=== PATIENT | female | born 1950 | race Caucasian/White ===

== ENCOUNTER → 2018-08-16 | Outpatient (CLI) | payer MEDICARE ==
--- NOTE | 2018-08-16 16:02 | RAD ---
Chest 2 views HISTORY: Cough COMPARISON: None FINDINGS: Heart is normal in size. The lungs are hyperexpanded. Mild bilateral interstitial prominence is evident. No effusion or pneumothorax is seen. IMPRESSION: Hyperexpanded lungs. Prominence of the interstitial markings could reflect nonspecific pneumonitis or interstitial fibrosis. No consolidations. Electronically signed by: Kade Gallagher MD (08/16/2018 4:00 PM) [facility] [place]
== END | disposition home or self-care (01) ==
LOC: RAD 09:54
PROVIDERS: ATTEND Family Medicine
DX: J98.4 Other disorders of lung (principal); J45.909 Unspecified asthma, uncomplicated
CPT/HCPCS: 71046

== ENCOUNTER → 2018-10-04 | Outpatient (CLI) | payer MEDICARE ==
[~2018-10-04] MED LIST: CONTRAST GIVEN. MC PRN; IOHEXOL 300 MG/ML 100ML VIAL. IV ONE
[2018-10-04 10:23] LABS: CREATININE 0.8 mg/dL (0.6-1.0); GFR 71.8
--- NOTE | 2018-10-04 13:37 | RAD ---
PQRS Compliance Statement: One or more of the following individualized dose reduction techniques were utilized for this examination: 1. Automated exposure control 2. Adjustment of the mA and/or kV according to patient size 3. Use of iterative reconstruction technique CT neck and chest with contrast 10/04/2018 INDICATION: Vocal cord polyp. COPD. COMPARISON: None available. TECHNIQUE: Multiple axial CT images of the neck and chest were obtained after the intravenous demonstration of 75 cc Omnipaque 300. Coronal and sagittal reformats are provided. FINDINGS: Orbits are normal in appearance with exception of bilateral lens replacement. No suspicious enhancement is identified in the visualized portions of the brain parenchyma and posterior fossa. Visualized portions of the elim ira of Damian appear intact. Paranasal sinuses are well aerated. Mastoid air cells are well aerated. Skull base is intact. Nasopharynx, oropharynx and hypopharynx are normal in appearance. Epiglottis is intact. Aryepiglottic folds are normal in appearance. No suspicious mucosal nodularity involving the true cords. No submucosal mass is identified. Paraglottic fat is preserved. Laryngeal cartilages are intact. Parapharyngeal fat is preserved. No pathologically enlarged or abnormally enhancing cervical lymph nodes are identified. Left level 2 cervical lymph node measures 4 mm by short axis. Trachea is normal in appearance. Subcentimeter thyroid nodules are identified measuring up to 6 mm in the right thyroid lobe. Carotid spaces are intact. No significant mediastinal and right hilar lymph nodes are identified. Heart size within normal limits. There is no pericardial effusion. Thoracic aorta is normal in course and caliber with mild calcified atheromatous plaque. There are no pathologically enlarged axillary, mediastinal or hilar lymph nodes. 3 mm solid noncalcified pulmonary nodule along the left major fissure (series 4, image 33). There is a subpleural nodule in the left lower lobe measuring 6 mm (series 4, image 55). 6 mm calcified granulomas identified in the medial right upper lobe. There is moderate centrilobular pulmonary emphysema. No pleural effusions. No pulmonary vascular congestion or pneumothorax. No suspicious osseous abnormality is identified. There is mild cervical spondylosis centered at C6-C7. IMPRESSION: 1. True cords appear normal in appearance by CT. No submucosal mass or paraglottic abnormality. 2. No pathologically enlarged cervical lymph nodes are identified. 3. There is a 6 mm solid noncalcified pulmonary nodule in the subpleural left lower lobe. 6 month follow-up chest CT is recommended to assess stability. 4. Moderate centrilobular pulmonary emphysema. Electronically signed by: Adamaris Andrews MD (10/04/2018 1:34 PM) [email or web address]
== END | disposition home or self-care (01) ==
LOC: CT 10:01
PROVIDERS: ATTEND Internal Medicine Pulmonary Disease
DX: J43.2 Centrilobular emphysema (principal); R91.1 Solitary pulmonary nodule; J84.10 Pulmonary fibrosis, unspecified; I70.0 Atherosclerosis of aorta; M47.812 Spondylosis without myelopathy or radiculopathy, cervical region; J38.1 Polyp of vocal cord and larynx; I10 Essential (primary) hypertension; F17.200 Nicotine dependence, unspecified, uncomplicated
CPT/HCPCS: 36415; 70491; 71260; 82565; 84520; Q9967

== ENCOUNTER → 2018-11-20 | Outpatient (CLI) | payer MEDICARE ==
--- NOTE | 2018-11-20 17:08 | KCIC ---
Bone mineral density exam History: Osteoporosis screening, postmenopausal, steroid use Comparison: None Findings: Bone mineral density examination utilizing DEXA was performed. Left hip bone mineral density of 0.710 g/cm2 corresponds with a T score -1.9, Z score -0.6 The bone mineral density of the lumbar spine was 0.841 g/cm2 which corresponds with a T-score of -1.9, Z score 0.0. By World [employer] on Osteoporosis criteria, a T score of 0 to-1 SD is considered to be within normal limits. A T score of -1 to -2.5 SD is considered osteopenia. A T score less than -2.5 SD is considered osteoporosis Impression: 1. There is osteopenia of the lumbar spine and the left hip. Electronically signed by: Jac Dickerson MD (11/20/2018 5:05 PM) [email or web address]
== END | disposition home or self-care (01) ==
LOC: KCIC DEXA 10:12
PROVIDERS: ATTEND Nurse Practitioner Family
DX: Z13.820 Encounter for screening for osteoporosis (principal); M85.88 Other specified disorders of bone density and structure, other site; N95.9 Unspecified menopausal and perimenopausal disorder
CPT/HCPCS: 77080

== ENCOUNTER → 2021-03-15 | Outpatient (CLI) | payer MEDICARE ==
--- NOTE | 2021-03-15 11:52 | KCIC ---
EXAM: CT CHEST WITHOUT CONTRAST (LDCT LUNG CANCER SCREENING). HISTORY: Risk factors for pulmonary malignancy. Patient is a smoker. TECHNIQUE: CT of the chest was performed without intravenous contrast using a low-dose lung screening protocol. Findings analysis is based on ACR Lung-RADS v1.1. *One or more of the following individualized dose r eduction techniques were utilized for this examination: 1. Automated exposure control. 2. Adjustment of the mA and/or kV according to patient size. 3. Use of iterative reconstruction technique. COMPARISON: Chest x-ray from 08/16/2018. FINDINGS: Nodules: There is a tiny 2 mm nodule in the right lower lobe, axial image 40/73. There is also a tiny pleural-based 2 mm nodule in the posterior right lower lobe, axial image 58/73 there is also a pleur al-based 4.8 mm nodule in the lateral left lower lobe, axial image 56/73. There is a calcified nodule in the right upper lobe. Mild biapical emphysematous changes are seen. Other findings: Images of the upper abdomen reveal no acute abnormality. Bone windows reveal no suspi cious lesions. There are no pathologically enlarged mediastinal or axillary lymph nodes. There is no pleural or christine cardial effusion. The heart is not enlarged. Diffuse atheromatous aortic and coronary calcification i s seen. No pulmonary parenchymal process is identified. IMPRESSION/RECOMMENDATION: Tiny subcentimeter noncalcified nodules in both lungs as outlined above. There is also a calcified no dule in the right upper lobe. These are all be related to remote granulomatous infection, however giv en history of smoking, 1. ACR Lung-RADS category: 2 2. Continue annual screening with LDCT in 12 months. Electronically signed by: Raya Sullivan MD (03/15/2021 11:49 AM) [facility]
--- NOTE | 2021-03-15 14:26 | KCIC ---
Bilateral digital screening mammograms: Reason for examination: Routine screening. New baseline. No previous exams available for comparison. Interpretation was made with the benefit of CAD. The skin and nipples show no abnormalities. No abnormal axillary lymph nodes are seen. The breast par enchyma shows scattered fibroglandular density. (Breast density: Category B.) There appear to be 2 sm all nodular parenchymal asymmetries centrally at approximately the retroareolar 12:00 B position of t he right breast. Further evaluation with coned compression views in CC and true lateral projections a nd ultrasound is recommended. There are no other dominant masses, suspicious calcifications or usama ectural distortions. A couple of benign calcifications are present. Impression: Small nodular parenchymal densities in the right breast centrally at retroareolar 12:00 B position. R ecommend further evaluation with cone compression views and ultrasound. BI-RADS category 0: Incomplete. Needs additional imaging evaluation. "Our facility is accredited by the [employer] Mammography [employer]." This patient's information has been entered into a reminder system for the patient to be notified wit h the results of her examination and a target date for the next mammogram. Electronically signed by: Rachelle Soto MD (03/15/2021 2:24 PM) [email or web address]
== END ==
LOC: KCIC MAMMO 09:46
PROVIDERS: ATTEND Family Medicine
DX: Z12.31 Encounter for screening mammogram for malignant neoplasm of breast (principal); Z12.2 Encounter for screening for malignant neoplasm of respiratory organs; R91.8 Other nonspecific abnormal finding of lung field; I25.10 Atherosclerotic heart disease of native coronary artery without angina pectoris; I70.0 Atherosclerosis of aorta; F17.210 Nicotine dependence, cigarettes, uncomplicated
CPT/HCPCS: 71271; 77067

== ENCOUNTER → 2021-03-29 | Outpatient (CLI) | payer MEDICARE ==
--- NOTE | 2021-03-29 11:47 | KCIC ---
Right breast diagnostic digital mammograms: Reason for examination: Nodularity on screening mammogram. Comparison is made to mammographic exam dated 03/15/2021. Coned compression views of the right breast were obtained in CC and lateral projections. With these additional views, there is no discrete nodules seen. The areas of nodularity probably repr esented superimposition of tissues. IMPRESSION: No suspicious abnormalities with additional coned compression views of the right breast. Ultrasound t o follow. BI-RADS Category 0: Incomplete. Needs additional imaging evaluation. Right breast ultrasound: Ultrasound examination of the right breast and axilla was performed. There is some ductal ectasia and some minimal fibrocystic type changes present. No suspicious nodules are seen. No abnormal appearing lymph nodes are seen in the axilla. IMPRESSION: Ductal ectasia with some very minimal fibrocystic type changes in the right breast. No suspicious abn ormality seen. Recommend routine mammographic follow-up. BI-RADS Category 2: Benign. "Our facility is accredited by the [employer] Mammography [employer]." This patient's information has been entered into a reminder system for the patient to be notified wit h the results of her examination and a target date for the next mammogram. Electronically signed by: Rachelle Soto MD (03/29/2021 11:44 AM) [email or web address]
== END ==
LOC: KCIC MAMMO 10:16
PROVIDERS: ATTEND Family Medicine
DX: N60.41 Mammary duct ectasia of right breast (principal); R92.8 Other abnormal and inconclusive findings on diagnostic imaging of breast
CPT/HCPCS: 76641; 77065